=== PATIENT | female | born 1935 | race Caucasian/White ===

== ENCOUNTER → 2016-06-15 | Outpatient (CLI) | payer MEDICARE, OTHER | END | disposition home or self-care (01) | LOC: PCVCCLINIC 10:29 | PROVIDERS: ATTEND Internal Medicine Cardiovascular Disease | DX: I42.9 Cardiomyopathy, unspecified (principal); I25.10 Atherosclerotic heart disease of native coronary artery without angina pectoris; I10 Essential (primary) hypertension; E78.00 Pure hypercholesterolemia, unspecified | CPT/HCPCS: 93005; G0463 ==

== ENCOUNTER → 2017-10-01 | Outpatient (CLI) | payer MEDICARE, OTHER | END | disposition home or self-care (01) | LOC: PCVCCLINIC 14:46 | DX: I10 Essential (primary) hypertension (principal); I25.10 Atherosclerotic heart disease of native coronary artery without angina pectoris; I34.0 Nonrheumatic mitral (valve) insufficiency; E78.00 Pure hypercholesterolemia, unspecified; Z88.8 Allergy status to other drugs, medicaments and biological substances; Z79.82 Long term (current) use of aspirin; Z79.899 Other long term (current) drug therapy | CPT/HCPCS: 93005; G0463 ==

== ENCOUNTER → 2018-01-08 | Outpatient (CLI) | payer MEDICARE, OTHER ==
--- NOTE | 2018-01-08 10:54 | PCVCIMAG ---
APPROVED REPORT Study performed: 01/08/2018 10:00:58 EXAM: Comprehensive 2D, Doppler, and color-flow Echocardiogram Patient Location: Echo lab Status: routine BSA: 1.77 HR: 79 bpmBP: 140/70 mmHg Rhythm: NSR Other Information Study Quality: Adequate Risk Factors: Cardiac Risk Factors: HTN, Hyperlipidemia Indications Cardiomyopathy Hypertension/HDD COPD, Mitral Regurgitation, 2D Dimensions IVSd: 12.90 (7-11mm)LVOT Diam: 20.77 (18-24mm) LVDd: 50.09 mm PWd: 11.59 (7-11mm)Ascending Ao: 38.54 (22-36mm) LVDs: 45.91 (25-40mm) Left Atrium: 45.11 (27-40mm) Aortic Root: 30.89 mm LV Single Plane 4CH: 48.28 % LV Single Plane 2CH: 47.01 % Biplane EF: 47.3 % Volumes Left Atrial Volume (Systole) Single Plane 4CH: 67.50 mLSingle Plane 2CH: 74.55 mL LA ESV Index: 43.00 mL/m2 Aortic Valve AoV Peak Jose.: 1.32 m/s AO Peak Gr.: 7.02 mmHgLVOT Max P.51 mmHg LVOT Max V: 1.06 m/s TRACEY Vmax: 2.71 cm2 AI Vmax: 3.31 m/s AI Hickman: 1.23 m/s2 AI PHT: 780.46 ms Mitral Valve E/A Ratio: 1.0 MV Decel. Time: 146.08 ms MV E Max Jose.: 1.24 m/s MV A Jose.: 1.23 m/s MV PHT: 42.36 ms TDI E/Lateral E': 62.00E/Medial E': 62.00 Medial E' Jose.: 0.02 m/s Lateral E' Jose.: 0.02 m/s Pulmonary Valve PV Peak Gr.: 1.67 mmHg Pulmonary Vein P Vein S: 0.47 m/sP Vein A: 0.37 m/s P Vein D: 0.44 m/sP Vein A Dur.: 86.5 msec P Vein S/D Ratio: 1.07 Tricuspid Valve TR Peak Jose.: 2.11 m/s TR Peak Gr.: 17.80 mmHg Left Ventricle The left ventricle is normal size. There is normal LV segmental wall motion. There is normal left ventricular wall thickness. Left ventricular systolic function is mild to moderately decreased. LVEF is 40-45%. Grade II - pseudonormal filling dynamics. Right Ventricle The right ventricle is normal size. The right ventricular systolic function is normal. Atria Left atrium is mildly dilated. The right atrium size is normal. Aortic Valve The aortic valve is normal in structure. Mild aortic regurgitation. There is no aortic valvular stenosis. Mitral Valve The mitral valve is normal in structure. Moderate mitral regurgitation. No evidence of mitral valve stenosis. Tricuspid Valve The tricuspid valve is normal in structure. Mild tricuspid regurgitation. Pulmonary artery pressure is 25mmHg. Pulmonic Valve The pulmonary valve is normal in structure. Trace pulmonic regurgitation. Great Vessels The aortic root is normal in size. IVC is normal in size and collapses >50% with inspiration. Pericardium There is no pericardial effusion. <Conclusion> The left ventricle is normal size. There is normal left ventricular wall thickness. Left ventricular systolic function is mild to moderately decreased. The right ventricle is normal size. Left atrium is mildly dilated. Mild aortic regurgitation. Moderate mitral regurgitation. Mild tricuspid regurgitation. Pulmonary artery pressure is 25mmHg.
== END | disposition home or self-care (01) ==
LOC: PCVCIMAG 10:42
PROVIDERS: ATTEND Internal Medicine Cardiovascular Disease
DX: I08.3 Combined rheumatic disorders of mitral, aortic and tricuspid valves (principal); I25.10 Atherosclerotic heart disease of native coronary artery without angina pectoris; I42.9 Cardiomyopathy, unspecified; I11.0 Hypertensive heart disease with heart failure; I50.9 Heart failure, unspecified; R06.00 Dyspnea, unspecified; J44.9 Chronic obstructive pulmonary disease, unspecified; E78.00 Pure hypercholesterolemia, unspecified; R60.9 Edema, unspecified; Z79.82 Long term (current) use of aspirin; Z79.899 Other long term (current) drug therapy
CPT/HCPCS: 93005; 93306; G0463

== ENCOUNTER → 2018-04-02 | Outpatient (CLI) | payer MEDICARE, OTHER ==
--- NOTE | 2018-04-02 11:43 | PCVCIMAG ---
APPROVED REPORT Study performed: 04/02/2018 10:55:09 EXAM: Comprehensive 2D, Doppler, and color-flow Echocardiogram Patient Location: Echo lab Status: routine BSA: 1.77 HR: 78 bpmBP: 130/80 mmHg Rhythm: NSR Other Information Study Quality: Good Risk Factors: Cardiac Risk Factors: HTN, Hyperlipidemia Indications Cardiomyopathy COPD, CHF 2D Dimensions IVSd: 11.24 (7-11mm)LVOT Diam: 21.83 (18-24mm) LVDd: 56.38 mm PWd: 11.48 (7-11mm)Ascending Ao: 33.02 (22-36mm) LVDs: 43.15 (25-40mm) Left Atrium: 54.34 (27-40mm) Aortic Root: 28.97 mm LV Single Plane 4CH: 43.39 % LV Single Plane 2CH: 45.15 % Biplane EF: 43.3 % Volumes Left Atrial Volume (Systole) Single Plane 4CH: 71.13 mLSingle Plane 2CH: 90.38 mL LA ESV Index: 48.00 mL/m2 Aortic Valve AoV Peak Jose.: 1.34 m/s AO Peak Gr.: 7.22 mmHg AI Vmax: 3.52 m/s AI Clarke: 1.46 m/s2 AI PHT: 701.61 ms Mitral Valve E/A Ratio: 0.8 MV Decel. Time: 105.86 ms MV E Max Jose.: 1.15 m/s MV A Jose.: 1.39 m/s IVRT: 103.81 ms TDI E/Lateral E': 16.43E/Medial E': 14.38 Medial E' Jose.: 0.08 m/s Lateral E' Jose.: 0.07 m/s Pulmonary Valve PV Peak Gr.: 1.70 mmHg Pulmonary Vein P Vein S: 0.67 m/sP Vein A: 0.37 m/s P Vein D: 0.54 m/sP Vein A Dur.: 83.0 msec P Vein S/D Ratio: 1.24 Left Ventricle The left ventricle is normal size. There is normal LV segmental wall motion. There is normal left ventricular wall thickness. Left ventricular systolic function is mild to moderately decreased. LVEF is 40-45%. Grade I - abnormal relaxation pattern. Right Ventricle The right ventricle is normal size. The right ventricular systolic function is normal. Atria Left atrium is moderately dilated. The right atrium size is normal. Aortic Valve The aortic valve is normal in structure. Mild aortic regurgitation. There is no aortic valvular stenosis. Mitral Valve The mitral valve is normal in structure. Moderate to severe mitral regurgitation No evidence of mitral valve stenosis. Tricuspid Valve The tricuspid valve is normal in structure. There is no tricuspid valve regurgitation noted. Pulmonic Valve The pulmonary valve is normal in structure. Trace pulmonic regurgitation. Great Vessels The aortic root is normal in size. IVC is normal in size and collapses >50% with inspiration. Pericardium There is no pericardial effusion. <Conclusion> The left ventricle is normal size. There is normal left ventricular wall thickness. Left ventricular systolic function is mild to moderately decreased. Grade I - abnormal relaxation pattern. The right ventricle is normal size. Left atrium is moderately dilated. Mild aortic regurgitation. Moderate to severe mitral regurgitation There is no tricuspid valve regurgitation noted.
== END | disposition home or self-care (01) ==
LOC: PCVCIMAG 10:54
PROVIDERS: ATTEND Internal Medicine Cardiovascular Disease
DX: I08.0 Rheumatic disorders of both mitral and aortic valves (principal); I42.9 Cardiomyopathy, unspecified; I10 Essential (primary) hypertension; R60.0 Localized edema; E78.5 Hyperlipidemia, unspecified
CPT/HCPCS: 93306

== ENCOUNTER → 2018-04-14 | Outpatient (CLI) | payer MEDICARE | END | disposition home or self-care (01) | LOC: PCVCCLINIC 14:42 | PROVIDERS: ATTEND Internal Medicine Cardiovascular Disease | DX: I10 Essential (primary) hypertension (principal); G47.33 Obstructive sleep apnea (adult) (pediatric); J44.9 Chronic obstructive pulmonary disease, unspecified; E03.9 Hypothyroidism, unspecified; Z79.82 Long term (current) use of aspirin; Z79.899 Other long term (current) drug therapy | CPT/HCPCS: 36415 ==

== ENCOUNTER → 2018-05-06 | Outpatient (CLI) | payer MEDICARE ==
--- NOTE | 2018-05-06 15:41 | PCVCIMAG ---
APPROVED REPORT Laterality: Bilateral Indications Amaurosis Fugax Transient vision loss Risk Factors Hypertension: Doppler Spectral Velocity Analysis PSV / EDVPSV / EDV ECA (R) 78 / 6 cm/sECA (L) 62 / 6 cm/s dICA (R) 38 / 14 cm/sdICA (L) 97 / 24 cm/s Jere (R) 65 / 19 cm/smICA (L) 72 / 24 cm/s pICA (R) 55 / 16 cm/spICA (L) 58 / 15 cm/s Bulb (R) 62 / 6 cm/sBulb (L) 53 / 11 cm/s dCCA (R) 92 / 13 cm/sdCCA (L) 64 / 12 cm/s mCCA (R) 83 / 10 cm/smCCA (L) 70 / 13 cm/s Vert (R) 42 / 7 cm/sVert (L) 59 / 15 cm/s ICA/CCA 0.71 ICA/CCA 1.38 Basic Measurements Blood Pressure: Pulses: Right Left RightLeft Brachial(Sitting) 142/70mmHgTemporal Real Time B-Mode Imaging Vert. (R)AntegradeVert. (L)Antegrade Findings The right carotid bulb has mild plaque. The right proximal internal carotid artery shows no significant stenosis. The right common carotid artery shows no significant stenosis. The right external carotid artery shows no significant stenosis. The left carotid bulb has moderate calcified plaque. The left proximal internal carotid artery shows <40% stenosis. The left common carotid artery shows <40% stenosis. The left external carotid artery shows no significant stenosis. Conclusion 1. Right internal carotid artery with mild plaquing, no significant stenosis 2. Left common and internal carotid artery stenoses (<40%) 3. Antegrade vertebral flow
== END | disposition home or self-care (01) ==
LOC: PCVCIMAG 13:00
PROVIDERS: ATTEND Internal Medicine Cardiovascular Disease
DX: I65.23 Occlusion and stenosis of bilateral carotid arteries (principal); I42.9 Cardiomyopathy, unspecified; H54.7 Unspecified visual loss; I34.0 Nonrheumatic mitral (valve) insufficiency; I10 Essential (primary) hypertension; Z79.82 Long term (current) use of aspirin; Z79.899 Other long term (current) drug therapy; E03.9 Hypothyroidism, unspecified; G47.33 Obstructive sleep apnea (adult) (pediatric); J45.50 Severe persistent asthma, uncomplicated; Z87.891 Personal history of nicotine dependence
CPT/HCPCS: 93005; 93880; G0463

== ENCOUNTER → 2018-05-06 | Outpatient (CLI) | payer MEDICARE | END | disposition home or self-care (01) | LOC: PCVCCLINIC 13:24 | PROVIDERS: ATTEND Internal Medicine Cardiovascular Disease | DX: I42.9 Cardiomyopathy, unspecified (principal); H54.7 Unspecified visual loss; I34.0 Nonrheumatic mitral (valve) insufficiency; I10 Essential (primary) hypertension; E78.5 Hyperlipidemia, unspecified; E03.9 Hypothyroidism, unspecified; J45.50 Severe persistent asthma, uncomplicated; Z88.0 Allergy status to penicillin; Z79.82 Long term (current) use of aspirin; Z79.899 Other long term (current) drug therapy; Z87.891 Personal history of nicotine dependence | CPT/HCPCS: 93005; G0463 ==

== ENCOUNTER → 2018-10-28 | Outpatient (CLI) | payer MEDICARE | END | disposition home or self-care (01) | LOC: PCVCCLINIC 13:00 | PROVIDERS: ATTEND Internal Medicine Cardiovascular Disease | DX: I42.9 Cardiomyopathy, unspecified (principal); I10 Essential (primary) hypertension; I34.0 Nonrheumatic mitral (valve) insufficiency; J44.9 Chronic obstructive pulmonary disease, unspecified; Z87.891 Personal history of nicotine dependence | CPT/HCPCS: 93005; G0463 ==